=== PATIENT | male | born 1970 | race Caucasian/White ===

== ENCOUNTER 2016-11-09 09:46 | Emergency (ER) | payer MEDICAID, SELFPAY ==
[~2016-11-09] VITALS: Ht 188 cm; Wt 85.6 kg
[2016-11-09 09:47] VITALS: BP 148/88
[2016-11-09] MEDS ORDERED: HYDR-3713 PO (10:28)
[2016-11-09] MEDS ORDERED: CYCL10TA PO (10:28)
[2016-11-09] MEDS ORDERED: NAPR500T PO (10:28)
== END 2016-11-09 10:35 | disposition home or self-care (01) ==
LOC: M ED 09:46
DX: M62.830 Muscle spasm of back (principal); G89.29 Other chronic pain; M54.9 Dorsalgia, unspecified; F17.210 Nicotine dependence, cigarettes, uncomplicated

== ENCOUNTER 2024-02-13 16:57 | Emergency (ER) | payer OTHER, SELFPAY ==
[~2024-02-13] VITALS: Ht 188 cm; Wt 90.9 kg
[~2024-02-13 16:57] MED LIST: CYCL-707 PO; HYDR-3713 PO; NAPR-837 PO
[2024-02-13] MEDS ORDERED: TAMS1CAP17 (17:09)
[2024-02-13] MEDS ORDERED: HYDR-3363 (17:09)
[2024-02-13 18:19] LABS: KETONE, URINE AUTO RFX NEGATIVE (NEGATIVE); LEUKOCYTE ESTERASE UR AUTO RFX NEGATIVE (NEGATIVE)
[2024-02-13 18:22] LABS: BASO # 0.1 10^3/uL (0.0-0.2); BASO % 0.6 % (0.0-1.0); EOS # 0.5 10^3/uL (0.0-0.5); EOS % 3.9 % (0.0-3.0); HEMATOCRIT 45.1 % (42.0-52.0); HEMOGLOBIN 15.8 g/dl (13.5-17.5); LYMPH # 2.7 10^3/uL (1.5-5.0); LYMPH % 23.1 % (24.0-44.0); MEAN CORPUSCULAR HEMOGLOBIN 30.9 pg (27.0-33.0); MEAN CORPUSCULAR VOLUME 88.1 fl (80.0-96.0); MONO # 0.9 10^3/uL (0.0-0.8); MONO % 7.3 % (2.0-8.0); NEUTROPHILS # 7.7 10^3/uL (1.5-8.5); NEUTROPHILS % 64.7 % (36.0-66.0); PLATELET COUNT, AUTOMATED 240 10^3/uL (150-450); RED BLOOD COUNT 5.12 10^6/uL (4.30-6.10); WHITE BLOOD COUNT 11.8 10^3/uL (4.0-10.0)
[2024-02-13 18:51] LABS: LIPASE 31 U/L (12-53)
[2024-02-13 18:53] LABS: ALBUMIN 3.7 G/DL (3.2-5.2); ALKALINE PHOSPHATASE 78 U/L (40-129); ALT/SGPT 24 U/L (7.0-40); AST/SGOT 26 U/L (<34); BILIRUBIN,DIRECT < 0.1 MG/DL (<0.4); BILIRUBIN,TOTAL 0.3 MG/DL (0.3-1.2); TOTAL PROTEIN 6.9 G/DL (5.7-8.2)
[2024-02-13] MEDS: ONDANSETRON 4MG 2ML VIAL IV ONE (20:24)
[2024-02-13] MEDS: KETOROLAC 30 MG/ML 1ML VIAL IV ONE (20:24)
[2024-02-13 21:36] VITALS: BP 143/85; TEMP 98.2; O2SAT 98
== END 2024-02-13 21:39 | disposition home or self-care (01) ==
LOC: M ED 16:57
DX: R10.9 Unspecified abdominal pain (principal); R11.0 Nausea; Z87.442 Personal history of urinary calculi; F17.200 Nicotine dependence, unspecified, uncomplicated; R16.2 Hepatomegaly with splenomegaly, not elsewhere classified; Q63.1 Lobulated, fused and horseshoe kidney
CPT/HCPCS: 74176; 80047; 80076; 81001; 83690; 85025; 96374; 96375; 99284; J1885; J2405